=== PATIENT | female | born 1995 | race Caucasian/White ===

== ENCOUNTER 2017-12-07 14:54 | Emergency (ER) | payer OTHER ==
[~2017-12-07] VITALS: Ht 177.8 cm; Wt 74.8 kg
[~2017-12-07 14:54] MED LIST: PRO40 PO; VIC PO
[2017-12-07 15:04] VITALS: Ht 177.8 cm; Wt 74.8 kg
[2017-12-07 16:22] LABS: BASOPHIL % 0.9 % (0-2); PLATELET COUNT 257 x10^3mcL (130-400); RED CELL DISTRIBUTION WIDTH 14.1 % (11.5-14.5)
[2017-12-07 16:34] LABS: CALCIUM 8.6 mg/dL (8.5-10.1); CARBON DIOXIDE 25.4 mmol/L (21-32); CHLORIDE SERUM 106 mmol/L (98-107); CREATININE SERUM 0.9 mg/dL (0.6-1.0); GFR1 > 60 mL/min; GLUCOSE SERUM 109 mg/dL (74-106); SODIUM SERUM 140 mmol/L (136-145)
[2017-12-07 16:39] LABS: ALBUMIN 3.7 g/dL (3.4-5.0); ALKALINE PHOSPHATASE 70 U/L (46-116); ALT/SGPT 41 U/L (14-59); AST/SGOT 91 U/L (15-37); TOTAL PROTEIN, SERUM 7.1 g/dL (6.4-8.2)
[2017-12-07 20:40] LABS: AMPHETAMINE QUAL UR NONE DETECTED (NEG <=1000)
[2017-12-07 22:04] VITALS: BP 110/70
== END 2017-12-07 22:04 ==
LOC: ED 14:54
PROVIDERS: Emergency Medicine
DX: S51.811A Laceration without foreign body of right forearm, initial encounter (principal); J45.909 Unspecified asthma, uncomplicated; Z88.8 Allergy status to other drugs, medicaments and biological substances; X58.XXXA Exposure to other specified factors, initial encounter; Y93.89 Activity, other specified; Y92.89 Other specified places as the place of occurrence of the external cause; Y99.8 Other external cause status
CPT/HCPCS: 36415; G0480; J2001; J3486; Q0163